=== PATIENT | female | born 1985 | race Caucasian/White ===

== ENCOUNTER 2023-04-03 12:13 | Day surgery (SDC) | payer BC ==
[2023-04-03] MEDS ORDERED: Promethazine HCl 25 MG/ML VIAL IM PRN (12:43)
[2023-04-03] MEDS ORDERED: hydrALAZINE 20 MG/ML VIAL SLOW IVP PRN (12:43)
[2023-04-03] MEDS ORDERED: Ondansetron PF 4 MG/2 ML Vial IVP PRN (12:43)
[2023-04-03] MEDS ORDERED: Oxytocin 30 units/NS 500 ML 500 ML IV SCH (12:45)
[2023-04-03] MEDS ORDERED: Lidocaine 1% (PF) 30 ML VIAL SC PRN (12:45)
[2023-04-03] MEDS ORDERED: Lactated Ringer's 1,000 ML IV SCH (12:45)
[2023-04-03] MEDS ORDERED: Mineral Oil ENEMA FS SCH (12:45)
[2023-04-03] MEDS ORDERED: Terbutaline Sulfate 1 MG/ML VIAL SC SCH (13:00)
[2023-04-03 13:01] VITALS: BMI 26.1
[2023-04-03 13:45] LABS: Hemoglobin 12.3 g/dL (12.0-15.5); Mean Corpuscular HGB CONC 35.1 g/dL (32.0-36.0); Mean Corpuscular Volume 93.8 fl (81.6-98.3); Mean Platelet Volume 10.2 fl (7.4-10.4); Platelet Count 279 10x3/uL (150-450); RBC Distribution Width 12.6 % (11.5-14.5); Red Blood Cell (RBC) Count 3.73 10x6/uL (3.90-5.03); White Blood Cell (WBC) Count 9.6 10x3/uL (3.5-10.5)
[2023-04-03 14:20] LABS: Syphilis Antibody Nonreactive (Nonreactive); Syphilis Antibody Index 0.07 S/CO (<1.00 Non-Reactive)
[2023-04-03 14:21] LABS: Hep B Surf Ag - L&D Non-Reactive S/CO (NonReactive)
== END 2023-04-03 17:23 | disposition home or self-care (01) ==
LOC: CSHLD/OP 12:13
PROVIDERS: ATTEND Student in an Organized Health Care Education/Training Program
PROC: 10E0XZZ Delivery of Products of Conception, External Approach (ICD-10-PCS; principal; 2023-04-03)
DX: O32.1XX0 Maternal care for breech presentation, not applicable or unspecified (principal); Z79.899 Other long term (current) drug therapy; Z3A.39 39 weeks gestation of pregnancy
CPT/HCPCS: 85027; 86780; 86850; 86900; 86901; 87340; J3105

== ENCOUNTER 2023-04-07 19:13 | Inpatient (IN) | payer BC ==
[2023-04-07] MEDS ORDERED: Lidocaine 1% (PF) 30 ML VIAL SC PRN (20:08)
[2023-04-07] MEDS ORDERED: Ibuprofen 800 MG TAB PO PRN (20:08)
[2023-04-07] MEDS ORDERED: hydrALAZINE 20 MG/ML VIAL SLOW IVP PRN ×2 (20:08→20:09)
[2023-04-07] MEDS ORDERED: Acetaminophen 500 MG TAB PO PRN (20:09)
[2023-04-07] MEDS ORDERED: Ondansetron PF 4 MG/2 ML Vial IVP PRN (20:09)
[2023-04-07] MEDS ORDERED: Methylergonovine 0.2 MG/ML VIAL IM PRN (20:09)
[2023-04-07] MEDS ORDERED: Diphenoxylate HCl/Atropine Tablet PO PRN (20:09)
[2023-04-07] MEDS ORDERED: Tranexamic Acid 1,000 MG/10 ML VIAL IVP PRN (20:09)
[2023-04-07] MEDS ORDERED: Promethazine HCl 25 MG/ML VIAL IM PRN (20:09)
[2023-04-07] MEDS ORDERED: Misoprostol 200 MCG TAB PR PRN (20:09)
[2023-04-07] MEDS ORDERED: Lactated Ringer's 1,000 ML IV SCH (20:15)
[2023-04-07] MEDS ORDERED: Oxytocin 30 units/NS 500 ML 500 ML IV SCH ×2 (20:15)
[2023-04-07 20:22] LABS: Hematocrit 37.9 % (34.9-44.5); Mean Corpuscular HGB CONC 34.3 g/dL (32.0-36.0); Mean Corpuscular Hemoglobin 31.9 pg (27.0-33.0); Mean Corpuscular Volume 93.1 fl (81.6-98.3); Mean Platelet Volume 10.1 fl (7.4-10.4); Platelet Count 291 10x3/uL (150-450); RBC Distribution Width 12.7 % (11.5-14.5); Red Blood Cell (RBC) Count 4.07 10x6/uL (3.90-5.03); White Blood Cell (WBC) Count 15.7 10x3/uL (3.5-10.5)
[2023-04-07 20:59] LABS: HBSAg Index 0.15 S/CO (0-0.99); Hep B Surf Ag - L&D Non-Reactive S/CO (NonReactive)
[2023-04-07 21:02] LABS: Syphilis Antibody Nonreactive (Nonreactive); Syphilis Antibody Index 0.07 S/CO (<1.00 Non-Reactive)
[2023-04-08] MEDS ORDERED: Misoprostol 200 MCG TAB VAG PRN (02:42)
[2023-04-08] MEDS ORDERED: hydrALAZINE 20 MG/ML VIAL SLOW IVP PRN (02:42)
[2023-04-08] MEDS ORDERED: Milk Of Magnesia 30 ML UDCUP PO PRN (02:42)
[2023-04-08] MEDS ORDERED: diphenhydrAMINE 25 MG CAP PO PRN (02:42)
[2023-04-08] MEDS ORDERED: Methylergonovine 0.2 MG/ML VIAL IM PRN (02:42)
[2023-04-08] MEDS ORDERED: Preparation H Ointment 28 GM TUBE PR PRN (02:42)
[2023-04-08] MEDS ORDERED: Boostrix 0.5 ML (Tdap) VIAL (>/=7 yrs of age) IM ONE (02:42)
[2023-04-08] MEDS ORDERED: Lanolin Ointment 7 GM TUBE TOP PRN (02:42)
[2023-04-08] MEDS ORDERED: Benzocaine-Menthol 82.5 ML CAN TOP PRN (02:42)
[2023-04-08] MEDS ORDERED: Bisacodyl 10 MG SUPP PR PRN (02:42)
[2023-04-08] MEDS ORDERED: Ondansetron PF 4 MG/2 ML Vial IVP PRN (02:42)
[2023-04-08] MEDS ORDERED: Oxytocin 30 units/NS 500 ML 500 ML IV SCH (02:42)
[2023-04-08] MEDS: Ibuprofen 800 MG TAB PO SCH ×3 (04:38→21:48)
[2023-04-08] MEDS: Docusate 100 MG CAP PO SCH ×2 (11:11→21:48)
[2023-04-08] MEDS: Ferrous Sulfate 325 MG TAB PO SCH ×2 (11:11→18:57)
[2023-04-08] MEDS: Prenatal Vitamin 1 TAB PO SCH (11:11)
[2023-04-09] MEDS: Ibuprofen 800 MG TAB PO SCH ×2 (05:48→15:03)
[2023-04-09] MEDS: Ferrous Sulfate 325 MG TAB PO SCH (08:16)
[2023-04-09] MEDS: Docusate 100 MG CAP PO SCH (09:39)
[2023-04-09] MEDS: Prenatal Vitamin 1 TAB PO SCH (09:39)
[2023-04-09 11:47] VITALS: BP 114/64; TEMP 98.1
== END 2023-04-09 16:45 | disposition home or self-care (01) | DRG 807 ==
LOC: CSHLD/OP 19:13 → CSHLD 20:09 → CSHPP 04-08 02:30
PROVIDERS: ADMIT Student in an Organized Health Care Education/Training Program; ATTEND Student in an Organized Health Care Education/Training Program
PROC: 10E0XZZ Delivery of Products of Conception, External Approach (ICD-10-PCS; principal; 2023-04-07)
PROC: 0HQ9XZZ Repair Perineum Skin, External Approach (ICD-10-PCS; 2023-04-07)
PROC: 0UQMXZZ Repair Vulva, External Approach (ICD-10-PCS; 2023-04-07)
DX: O69.81X0 Labor and delivery complicated by cord around neck, without compression, not applicable or unspecified (principal); Z37.0 Single live birth; Z3A.40 40 weeks gestation of pregnancy; O70.0 First degree perineal laceration during delivery
CPT/HCPCS: 85027; 86780; 86850; 86900; 86901; 87340